=== PATIENT | female | born 1970 | race Caucasian/White ===

== ENCOUNTER → 2017-08-01 | Outpatient (CLI) | payer BC | LOC: FIMAGING 08:20 | PROVIDERS: ATTEND Family Medicine | DX: Z12.31 Encounter for screening mammogram for malignant neoplasm of breast (principal) | CPT/HCPCS: G0202 ==

== ENCOUNTER → 2018-09-04 | Outpatient (CLI) | payer BC | LOC: FIMAGING 16:07 | PROVIDERS: ATTEND Family Medicine | DX: Z12.31 Encounter for screening mammogram for malignant neoplasm of breast (principal) ==

== ENCOUNTER → 2018-10-18 | Outpatient (CLI) | payer OTHER ==
[~2018-10-18] MED LIST: IOHEXOL 350mgI/ML (OMNIPAQUE) 150 ML BTL IV ONE
== END ==
LOC: FIMAGING 15:13
PROVIDERS: ATTEND Family Medicine
DX: I77.1 Stricture of artery (principal); G83.11 Monoplegia of lower limb affecting right dominant side
CPT/HCPCS: Q9967

== ENCOUNTER 2018-11-18 08:39 | Emergency (ER) | payer OTHER ==
[2018-11-18] MEDS ORDERED: NS 500 ML IV ONE (09:20)
--- NOTE | 2018-11-18 09:28 | EDPHY ---
H & P Time Seen by Provider: 11/18/18 09:08 HPI/ROS: HPI Pins and needles in lower abdomen up to left jaw, left lower abdominal tightness. 47-year-old female by private vehicle with her . 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 She is currently having this managed and has an appointment this month on the [facility] to be evaluated out at [place] for this problem. She reports that she was [place] skiing with her using poles. She reports they were very active doing this yesterday. She reports that last night at dinner she started getting an aunt sensation involving her left lower abdomen which she describes as a tightness in her left lower quadrant. She reports that over time this then radiated up the side of her abdominal wall, lateral aspect with a pins and needle like sensation that continued up through her chest and up into her left neck and left mandibular area. No associated chest pain. No shortness of breath. She denies any loss of sensation or weakness in her extremities. No back pain. No fever. No neck pain. No headache. No other complaints. There is no history of trauma. Through her workup with her various specialists concerning her right external iliac artery occlusion she has had MR imaging in August of 2018 of her brain and spinal cord. No evidence of MS. She currently is not on any anticoagulation. ROS: Constitutional: No fever, no chills. No weakness. Eyes: No discharge. No changes in vision. ENT: No sore throat. No nasal congestion or rhinorrhea. Respiratory: No cough. No shortness of breath. Cardiac: No chest pain, no palpitations. Gastrointestinal: As above, no vomiting, no diarrhea. Genitourinary: No hematuria. No dysuria or increased frequency with urination. Musculoskeletal: No back pain. No neck pain. No myalgias or arthralgias. Skin: No rashes. Neurological: No headache. No focal weakness. As above. Past medical history: Subdural hematoma. As above. Social history: Nonsmoker. Very physically active. Here with her . No alcohol. Physical Exam: General Appearance: Alert, no distress. This patient is responding to questions appropriately and in full sentences. This patient appears well- hydrated and well-nourished. Eyes: Pupils equal and round no pallor or injection. No lid edema, erythema or injection. Respiratory: There are no retractions, lungs are clear to auscultation with good air movement bilaterally. Cardiovascular: Regular rate and rhythm. No murmur. Gastrointestinal: Abdomen is soft and nontender, no masses, bowel sounds normal. No focal tenderness at McBurney's point. No Joe sign. Neurological: Motor sensory function is grossly intact in all myotomes in dermatomes of the bilateral upper and bilateral lower extremities. Cranial nerves are normal. Gait is normal. Skin: Warm and dry, no rashes. Musculoskeletal: Neck is supple and nontender. No pain on flexion of her neck. Extremities are symmetrical. All joints range without pain or impingement. Psychiatric: No agitation. No depression. Database: EKG: EKG time is 9:06 a.m.; EKG shows a narrow complex normal sinus rhythm with a ventricular rate of 55. The UT, QRS, QT intervals are within normal limits. There are no ST-T wave changes indicative of ischemic or injury pattern. No evidence of right heart strain. Interpreted by me. Imaging: Procedures: Emergency department course: Triage vital signs reviewed. She is moderately hypertensive. Vital signs are otherwise normal. An IV was placed. She was placed on a personnel monitor. EKG obtained and reviewed by myself. No significant focal findings on her neurologic exam. MS is unlikely given her recent MR imaging. A vascular claudication causing these symptoms on the left side I feel is unlikely. Cardiac etiology unlikely given her history and Health. Anxiety reaction is a possibility. 11:15 a.m., the patient was re-evaluated, resting comfortably at this time. She reports still having a mild pins and needle sensation as described above. Repeat neurologic Assessment is nonfocal. I discussed the results of her emergency department workup. I feel a cardiac etiology is unlikely. I feel a CVA is unlikely. A acute thrombotic event verses MS is also unlikely. I did discuss repeating her MRIs to evaluate for MS. She does not want to do this. She is asking to be discharged. She is to follow up with a vascular specialist at [place] on November 29. I discussed neurology follow-up with her she is in agreement to see a neurologist. She states that she is feeling better though and is requesting discharge. Return to emergency department precautions were thoroughly reviewed with her and her . All of their questions were answered. She was discharged from the emergency department in good condition with her . Differential Diagnosis: The differential diagnosis on this patient includes but is not limited to anxiety reaction. MS, acute coronary syndrome, CVA unlikely. This represents a partial list of diagnoses considered. These considerations are based on history, physical exam, past history, reassessment and diagnostic testing. Smoking Status: Never smoked Constitutional: Initial Vital Signs Temperature (C) 36.6 C 11/18/18 08:45 Heart Rate 78 11/18/18 08:45 Respiratory Rate 16 11/18/18 08:45 Blood Pressure 143/108 H 11/18/18 08:45 O2 Sat (%) 97 11/18/18 08:45 O2 Delivery Mode Room Air Allergies/Adverse Reactions: No Known Allergies Allergy (Unverified 11/18/18 08:45) Home Medications: Medication Instructions Recorded Synthroid 10/24/10 Hydrocortisone 11/18/18 Medical Decision Making - Data Points Laboratory Results: Laboratory Results 11/18/18 09:36 11/18/18 09:36 11/18/18 11/18/18 11/18/18 09:38 09:36 09:36 WBC REJ RBC REJ Hgb REJ Hct REJ MCV REJ MCH REJ MCHC REJ RDW REJ Plt Count REJ MPV REJ Neut % (Auto) REJ Lymph % (Auto) REJ Cloud % (Auto) REJ Eos % (Auto) REJ Baso % (Auto) REJ Nucleat RBC Rel Count REJ Absolute Neuts (auto) REJ Absolute Lymphs (auto) REJ Absolute Monos (auto) REJ Absolute Eos (auto) REJ Absolute Basos (auto) REJ Absolute Nucleated RBC REJ Immature Gran % REJ Immature Gran # REJ Sodium 138 mEq/L mEq/L (135-145) Potassium 4.8 mEq/L mEq/L (3.5-5.2) Chloride 108 mEq/L mEq/L (97-110) Carbon Dioxide 20 mEq/l L mEq/l (22-31) Anion Gap 10 mEq/L mEq/L (6-14) BUN 23 mg/dL mg/dL (7-23) Creatinine 1.2 mg/dL H mg/dL (0.6-1.0) Estimated GFR 48 Glucose 79 mg/dL mg/dL (70-100) Calcium 9.5 mg/dL mg/dL (8.5-10.4) POC Troponin I 0.02 ng/mL ng/mL (0.00-0.08) Specimen Hemolysis 164 Medications Given: Discontinued Medications Sodium Chloride (Ns) 500 mls @ 1,000 mls/hr IV EDNOW ONE PRN Reason: Protocol Stop: 11/18/18 09:49 Last Admin: 11/18/18 09:47 Dose: Not Given Point of Care Test Results: Chemistry 11/18/18 09:38 POC Troponin I 0.02 ng/mL ng/mL (0.00-0.08) Departure - Departure Disposition: Home, Routine, Self-Care Clinical Impression: Paresthesia Condition: Good Instructions: Paresthesia (ED) Additional Instructions: Read and follow provided instructions. Follow-up with your vascular specialist as scheduled on November 29 at [place]. I have also provided you with the contact information for our neurologist on- call. You can call their office this afternoon and schedule a follow-up appointment for later this week. Explained this is for an emergency department follow-up. Most important, return to the emergency department for worsening symptoms, loss of sensation in your extremities, muscle weakness, fever, headache, shortness of breath or other serious concerns. Referrals: Estella Gould MD [Primary Care Provider] - As per Instructions Sarmad Munoz MD [Medical Doctor] - As per Instructions
[2018-11-18 11:24] VITALS: BP 122/78
--- NOTE | 2018-11-18 15:31 | CPEKG ---
Test Reason : OPEN Blood Pressure : / mmHG Vent. Rate : 055 BPM Atrial Rate : 054 BPM P-R Int : 179 ms QRS Dur : 091 ms QT Int : 455 ms P-R-T Axes : 051 044 037 degrees QTc Int : 436 ms Sinus rhythm Confirmed by Jordyn Lynch ([id number]) on 11/18/2018 3:30:44 PM Referred By: PHYSICIAN ED Confirmed By:Jordyn Lynch
== END 2018-11-18 11:28 | disposition home or self-care (01) ==
DX: R20.2 Paresthesia of skin (principal)
CPT/HCPCS: 84484-ER